=== PATIENT | male | born 1980 | race Caucasian/White ===

== ENCOUNTER 2020-03-11 09:01 | Observation (INO) ==
--- NOTE | 2020-03-11 09:43 | Emergency Department Note ---
Abdominal Pain HPI General Chief Complaint: Abdominal Pain Stated Complaint: hernia Time Seen by Provider: 03/11/20 12:03 Source: patient and RN notes reviewed Mode of arrival: ambulatory Limitations: no limitations History of Present Illness HPI Narrative: Narrative: This patient comes emergency room because of a left inguinal hernia. Location is in the left inguinal region where he does have a bulge. Duration has been 6 months with exacerbation over the last few weeks and much more of an exacerbation over the last couple of days. Timing shows that the pain has been constant for the last week and worsening over the last couple of days. Severity is moderate. Quality the pain is sharp. Associated signs and symptoms appear to be negative. He has had no associated nausea vomiting fever chills or signs of toxicity. Context does not show anything specific. He does workout a lot but does not recall a specific injury as to when this occurred. Modifying factors include worsening pain with palpation improvement in the pain if lying flat. Is also made worse by sitting and walking. Related Data Allergies Allergy/AdvReac Type Severity Reaction Status Date / Time Sulfa (Sulfonamide Allergy Intermediate Vomiting Verified 01/21/15 17:51 Antibiotics) Review of Systems ROS ROS Narrative: Narrative: All systems ED: reviewed and negative except as stated. Constitutional: Denies fever, chills and sweats Cardiovascular: Denies chest pain Respiratory: Denies shortness of breath Gastrointestinal: Reports abdominal pain; Denies nausea and vomiting Genitourinary: Reports testicular pain (On the left side) Musculoskeletal: Reports myalgia [facility] Narrative Patient History Narrative: Narrative: This patient has no surgical history and no pertinent family history. Medical/Surgical/Family History All Active Problems (Updated 03/11/20 @ 12:08 by Wong Pearson MD) Chicken pox (Acute) Impetigo (Acute) Viral exanthem (Acute) Corneal abrasion (Acute) Oral herpes (Acute) Sinusitis (Acute) Anxiety (Acute) Incarcerated left inguinal hernia (Acute) Medical History (Updated 03/11/20 @ 12:08 by Wong Pearson MD) Chicken pox (Acute) Corneal abrasion (Acute) Impetigo (Acute) Oral herpes (Acute) Viral exanthem (Acute) Social History Smoking Status: Current every day smoker Exam Narrative Narrative: Narrative: Left inguinal region shows about a 3 to 4 cm area of bulging coming down the inguinal canal. It is tender to palpation and I have difficulty reducing this. The testicle on the left side looks normal. The hernia does not extend down to the testicle. General Limitations: no limitations Head Head: atraumatic and normocephalic Eye Eye: Present normal appearance; Absent conjunctival injection ENT ENT: Present normal exam, normal oropharynx and mucous membranes moist Neck Neck: Present normal inspection and full ROM Chest Chest: Present normal inspection and symmetric chest wall rise Respiratory Respiratory: Present normal lung sounds bilaterally; Absent respiratory distress, rales/crackles and wheezes Cardiovascular Cardiovascular: Present regular rate, normal rhythm and normal heart sounds Adbominal Abdominal: Present soft, distention, tenderness, normal bowel sounds and hernia; Absent guarding, rebound and rigidity : Present normal inspection, normal testicular lie and circumcised; Absent testicular tenderness and scrotal swelling Extremities Extremities: Present normal inspection and full ROM Neurological Neurological: Present alert and oriented X3 Psychiatric Psychiatric: Present normal affect Skin Skin: Present warm; Absent diaphoresis Course Vital Signs Vital signs: Vital Signs Temperature 97.7 F 03/11/20 09:02 Pulse Rate 132 H 03/11/20 09:02 Respiratory Rate 16 03/11/20 09:02 Blood Pressure 151/100 03/11/20 09:02 Pulse Oximetry (%) 97 03/11/20 09:02 Temperature 97.7 F 03/11/20 09:02 Pulse Rate 57 L 03/11/20 11:30 Respiratory Rate 16 03/11/20 09:02 Blood Pressure 148/100 03/11/20 11:30 Pulse Oximetry (%) 97 03/11/20 11:30 [facility] MDM Narrative Medical decision making narrative: Narrative: This patient does have an incarcerated left inguinal hernia that is all fat without any bowel component. It is not reducible and is painful and I discussed the case with Dr. Palacios the surgeon and will admit to his service. Differential Diagnosis Differential Diagnosis: Incarcerated or strangulated left inguinal hernia Lab Data Lab results reviewed: Yes I reviewed the patient's lab results. Result diagrams: 03/11/20 09:40 03/11/20 09:40 Labs: Lab Results 03/11/20 03/11/20 Range/Units 09:40 09:40 WBC 7.5 (4.50-11.00) K/mcL RBC 4.94 (4.63-6.08) M/mcL Hgb 16.3 (13.7-17.5) g/dL Hct 46.7 (40.1-51.0) % MCV 94.5 (80.0-100.0) fL MCH 33.0 (26.0-34.0) pg MCHC 34.9 (31.0-36.0) g/dL RDW 12.5 (11.5-14.5) % Plt Count 297 (140-440) K/mcL MPV 10.1 (7.4-10.4) fL Gran % 55.8 (38.0-78.0) % Lymph % (Auto) 33.7 (15.5-49.0) % [place] % (Auto) 8.1 (1.0-12.0) % Eos % (Auto) 1.7 (0.0-7.0) % Baso % (Auto) 0.7 (0.0-2.0) % Gran # 4.19 (1.80-8.00) K/mcL Lymph # (Auto) 2.53 (1.50-4.80) K/mcL [place] # (Auto) 0.61 (0.10-0.90) K/mcL Eos # (Auto) 0.13 (0.00-0.70) K/mcL Baso # (Auto) 0.05 (0.00-0.30) K/mcL Sodium 141 (133-145) mmol/L Potassium 3.6 (3.3-5.1) mmol/L Chloride 107 (96-108) mmol/L Carbon Dioxide 21 L (22-30) mmol/L Anion Gap 13.0 (8-16) BUN 17 (6-20) mg/dl Creatinine 0.8 (0.7-1.2) mg/dl GFR Calculation 110 Glucose 99 (70-105) mg/dL Calcium 8.5 L (8.6-10.4) mg/dl Total Bilirubin 0.3 (0.0-1.0) mg/dL AST 17 (0-37) U/l ALT 19 (0-40) U/l Alkaline Phosphatase 62 (39-117) U/L Total Protein 6.0 (5.9-8.4) gm/dL Albumin 3.8 (3.2-5.2) gm/dL Globulin 2.2 (2.2-3.7) gm/dL Albumin/Globulin Ratio 1.7 (1.0-2.3) Radiology Data Radiology results reviewed: Yes I reviewed the patient's radiology results. Radiology results narrative: Ultrasound confirms an incarcerated left inguinal hernia that is all fat without any bowel component. Also commented that it was nonreducible. There is a 6 cm hernia coming through a 2 cm opening. Discharge Plan Patient/Caregiver Discharge Instructions Pt seen by PERFORMANCE ANALYST/PA only: No Clinical Impression: Incarcerated left inguinal hernia Patient Disposition: Xfer As Outpt/Obs ([facility]) Follow up with: No,PCP [Primary Care Provider] -
[2020-03-11] MEDS: HYDROmorphone 0.5 MG/0.5 ML SYRINGE IV PRN ×7 (10:05→22:55)
--- NOTE | 2020-03-11 10:36 | XRay Report ---
CLINICAL INFORMATION: Preop - hernia COMPARISON: None. TECHNIQUE: PA and Lateral views FINDINGS: The heart size, mediastinum and pulmonary vessels are unremarkable. The lungs are clear. There are no effusions. The bones and soft tissues are within normal limits. IMPRESSION: Normal chest. Interpreted and Authenticated by: Brandin Mukherjee 03/11/20
[2020-03-11 10:53] LABS: Basophils # (Auto) 0.05 K/mcL (0.00-0.30); Basophils % (Auto) 0.7 % (0.0-2.0); Eosinophils # (Auto) 0.13 K/mcL (0.00-0.70); Eosinophils % (Auto) 1.7 % (0.0-7.0); Granulocytes % (Auto) 55.8 % (38.0-78.0); Hematocrit 46.7 % (40.1-51.0); Hemoglobin 16.3 g/dL (13.7-17.5); Lymphocytes # (Auto) 2.53 K/mcL (1.50-4.80); Lymphocytes % (Auto) 33.7 % (15.5-49.0); Mean Cell Volume 94.5 fL (80.0-100.0); Mean Corpuscular HGB Conc 34.9 g/dL (31.0-36.0); Mean Platelet Volume 10.1 fL (7.4-10.4); Monocytes # (Auto) 0.61 K/mcL (0.10-0.90); Monocytes % (Auto) 8.1 % (1.0-12.0); Platelet Count 297 K/mcL (140-440); RBC 4.94 M/mcL (4.63-6.08); Red Cell Distribution Width 12.5 % (11.5-14.5); WBC 7.5 K/mcL (4.50-11.00)
[2020-03-11 11:15] LABS: ALT/SGPT 19 U/l (0-40); AST/SGOT 17 U/l (0-37); Albumin 3.8 gm/dL (3.2-5.2); Albumin/Globulin Ratio 1.7 (1.0-2.3); Alkaline Phosphatase 62 U/L (39-117); Bilirubin,Total 0.3 mg/dL (0.0-1.0); Blood Urea Nitrogen 17 mg/dl (6-20); Calcium 8.5 mg/dl (8.6-10.4); Carbon Dioxide 21 mmol/L (22-30); Chloride 107 mmol/L (96-108); Globulin 2.2 gm/dL (2.2-3.7); Glomerular Filtration Rate 110; Glucose 99 mg/dL (70-105)
--- NOTE | 2020-03-11 11:55 | Ultrasound Report ---
CLINICAL INFORMATION: Left groin bulge. Evaluate for inguinal hernia COMPARISON: None. FINDINGS: 6 x 5 cm left inguinal hernia containing only mesenteric fat. Could not be reduced. IMPRESSION: 6 cm left inguinal hernia projecting through 2 cm defect in the lower pelvic wall. It appears to be entirely fat and cannot be reduced. Interpreted and Authenticated by: Brandin Mukherjee 03/11/20
[2020-03-11] MEDS ORDERED: ONDANSETRON 4 MG/2 ML VIAL IV PRN (12:03)
[2020-03-11] MEDS: LACTATED RINGERS 1,000 ML IV SCH (15:10)
--- NOTE | 2020-03-11 15:44 | General Surg History&Physical ---
HPI History of Present Illness Patient information: Note initiated : 03/11/20 at 3:36 pm Service Date, if different from initiated Date: [] Patient: Wong Sylevster 40 y/o M admitted on 03/11/20 for hernia. Chief Complaint: [] Chief complaint: left inguinal mass History of present illness: Mr. Sylvester is a 40 year old M who presents with a two-week history of increasing pain in his left groin. He has had a known her yudy for at least 6 months. The pain increased in intensity as the hernia sized increase. Previously it was reducible but it became nonreducible last evening. He now has a tightly incarcerated left inguinal hernia confirmed by ultrasound. He denies nausea vomiting. Patient is counseled for left inguinal hernia repair. Review of Systems All systems: reviewed and no additional remarkable complaints except as stated (numbness of hands and arm with elevation above head; symptoms resolved with lowering of arms) PFSH PFSH All Active Problems (Updated 03/11/20 @ 12:08 by Wong Pearson MD) Chicken pox (Acute) Impetigo (Acute) Viral exanthem (Acute) Corneal abrasion (Acute) Oral herpes (Acute) Sinusitis (Acute) Anxiety (Acute) Incarcerated left inguinal hernia (Acute) Medical History (Updated 03/11/20 @ 12:08 by Wong Pearson MD) Chicken pox (Acute) Corneal abrasion (Acute) Impetigo (Acute) Oral herpes (Acute) Viral exanthem (Acute) Family History (Updated 03/11/20 @ 15:39 by Angel Palacios MD) Father Hypertension Mother No problems noted. Social History (Updated 03/11/20 @ 15:40 by Angel Palacios MD) occupational status: employed smoking status: Current some day smoker alcohol intake frequency: a few times a week substance use type: marijuana MEDS/ALLERGIES Home Medications and Allergies Home Medications Medication Instructions Recorded Confirmed Type No Known Home Meds 03/11/20 03/11/20 History Allergies Allergy/AdvReac Type Severity Reaction Status Date / Time Sulfa (Sulfonamide Allergy Intermediate Vomiting Verified 01/21/15 17:51 Antibiotics) Physical Examination Vital Signs Vital signs: Temp Pulse Resp BP Pulse Ox 97.7 F 61 16 121/80 96 03/11/20 13:15 03/11/20 13:15 03/11/20 13:15 03/11/20 13:15 03/11/20 13:15 General physical appearance General physical exam: well developed, well nourished and moderate distress Eyes Eye exam: PERRL and normal ocular movement ENT ENT exam: normal mucosa and no hearing loss Head Head exam IM: Present atraumatic, normal inspection and normocephalic Neck Neck exam: no masses, no bruits, trachea midline, no lymphadenopathy and no venous distension Cardiovascular Cardiovascular exam IM: Present normal rate and rhythm, RRR, +S1 and +S2; Absent gallop and JVD Respiratory Respiratory exam: normal expansion, normal respiratory effort, clear to percussion and clear to auscultation Abdomen Abdomen: Present soft, non tender, tender and bowel sounds Hernia: Present inguinal (tender enlarged mass left groin which is tightly incarcerated; no erythema noted) Integumentary Integumentary: Present no rash, no growths and no abnormal pigmentation Neurologic Neurologic: Present normal coordination and normal sensation Musculoskeletal Musculoskeletal: Present normal gait and normal posture Psychiatric Psychiatric: Present oriented to time, oriented to person, oriented to place, speech is normal and memory intact Results Labs Result diagrams: 03/11/20 09:40 03/11/20 09:40 Labs: Abnormal lab results 03/11/20 Range/Units 09:40 Carbon Dioxide 21 L (22-30) mmol/L Calcium 8.5 L (8.6-10.4) mg/dl Diabetes panel 03/11/20 Range/Units 09:40 Sodium 141 (133-145) mmol/L Potassium 3.6 (3.3-5.1) mmol/L Chloride 107 (96-108) mmol/L Carbon Dioxide 21 L (22-30) mmol/L BUN 17 (6-20) mg/dl Creatinine 0.8 (0.7-1.2) mg/dl Glucose 99 (70-105) mg/dL Calcium 8.5 L (8.6-10.4) mg/dl AST 17 (0-37) U/l ALT 19 (0-40) U/l Alkaline Phosphatase 62 (39-117) U/L Total Protein 6.0 (5.9-8.4) gm/dL Albumin 3.8 (3.2-5.2) gm/dL Calcium panel 03/11/20 Range/Units 09:40 Calcium 8.5 L (8.6-10.4) mg/dl Albumin 3.8 (3.2-5.2) gm/dL Pituitary panel 03/11/20 Range/Units 09:40 Sodium 141 (133-145) mmol/L Potassium 3.6 (3.3-5.1) mmol/L Chloride 107 (96-108) mmol/L Carbon Dioxide 21 L (22-30) mmol/L BUN 17 (6-20) mg/dl Creatinine 0.8 (0.7-1.2) mg/dl Glucose 99 (70-105) mg/dL Calcium 8.5 L (8.6-10.4) mg/dl Adrenal panel 03/11/20 Range/Units 09:40 Sodium 141 (133-145) mmol/L Potassium 3.6 (3.3-5.1) mmol/L Chloride 107 (96-108) mmol/L Carbon Dioxide 21 L (22-30) mmol/L BUN 17 (6-20) mg/dl Creatinine 0.8 (0.7-1.2) mg/dl Glucose 99 (70-105) mg/dL Calcium 8.5 L (8.6-10.4) mg/dl Total Bilirubin 0.3 (0.0-1.0) mg/dL AST 17 (0-37) U/l ALT 19 (0-40) U/l Alkaline Phosphatase 62 (39-117) U/L Total Protein 6.0 (5.9-8.4) gm/dL Albumin 3.8 (3.2-5.2) gm/dL All other labs normal. A/P Assessment and plan (1) Incarcerated left inguinal hernia: Status: Acute Narrative A/P Narrative: admit to observation sCHEDULE for left inguinal hernia repair in the AM nothing by mouth after midnight Time Spent With Patient Time: Total time spent is greater than 50% in coordination of care (as documented) at patient's floor/unit and/or counseling patient:
[2020-03-11 20:10] LABS: Appearance,Urine CLEAR; Bacteria,Urine 0 /hpf (0); Bilirubin,Urine NEG (NEG); Color,Urine YELLOW; Culture Indicated,Urine NO; Glucose,Urine (UA) NEGATIVE (NEG); Ketones,Urine NEG (NEG); Leukocyte Esterase,Urine NEG /uL (NEG); Mucus,Urine FEW /hpf (0); Nitrate,Urine NEG (NEG); Protein,Urine NEG (NEG); Specific Gravity,Urine 1.021 (1.000-1.035); Urine Blood NEG mg/dL (<0.03); Urine Hyaline Cast 1 /lpf (0-2); Urine RBC 0 /hpf (0-1); Urine Squamous Epithelial Cell < 1 /hpf (0-4); Urine WBC < 1 /hpf (0-4); Urobilinogen,Urine NEG (NEG)
[2020-03-11 20:39] LABS: Amphetamine Screen,Urine SUSPECT POSITIVE (NONDETECTED); Barbiturate Screen,Urine NONE DETECTED (NONDETECTED); Benzodiazepines Screen,Urine NONE DETECTED (NONDETECTED); Cannabinoid Screen,Urine SUSPECT POSITIVE (NONDETECTED); Cocaine Screen,Urine NONE DETECTED (NONDETECTED); Opiate Screen,Urine NONE DETECTED (NONDETECTED); Oxycodone, Urine Screen NONE DETECTED (NONDETECTED); Phencyclidine Screen,Urine NONE DETECTED (NONDETECTED)
[2020-03-12] MEDS: HYDROmorphone 0.5 MG/0.5 ML SYRINGE IV PRN ×3 (01:29→08:27)
[2020-03-12] MEDS ORDERED: SCOPOLAMINE 1 PATCH PATCH TOPICAL PRN (02:17)
[2020-03-12] MEDS ORDERED: IPRATROPIUM/ALBUTEROL 3 ML AMPUL.NEB NEB PRN (02:17)
[2020-03-12] MEDS ORDERED: LEVOFLOXACIN 750 MG/150 ML BAG IV SCH (06:00)
[2020-03-12] MEDS ORDERED: LEVAQUIN 750 MG IV ONE (08:00)
--- NOTE | 2020-03-12 10:57 | Discharge Summary ---
Discharge Provider Provider Patient information: Note initiated : 03/12/20 at 10:46 am Service Date, if different from initiated Date: [] Patient: Wong Sylvester 40 y/o M admitted on 03/11/20 for hernia. Chief Complaint: [] Date of admission: 03/11/20 13:13 Discharge date: 03/12/20 Primary care physician: PCP No Admitting clinician: Angel Palacios Attending physician on admission: Angel Palacios Consults: 03/11/20 Consult to Physician [CONS] Stat Comment: Consulting Provider: Angel Palacios Reason For Exam: Physician to Consult Attending physician on discharge: Angel Palacios Discharging clinician: Angel Palacios COURSE Hospital Course Hospital course: 40-year-old male admitted on yesterday with an incarcerated left inguinal hernia with severe pain. He was admitted in preparation for operative treatment. The patient had a prior history of methamphetamine use. A urine drug screen was done in the emergency room which came back positive for methamphetamine and THC. After discussion with anesthesia it was their impression that we should wait at least 72 hours more before subjecting him to anesthesia. Fortunately his hernia has reduced overnight and though he has some tenderness there is no risk for intestinal obstruction. Patient is discharged with the understanding that he is not to use any methamphetamine until he returns. He will return to outpatient on Sunday morning prior to 9 AM and a repeat drug screen will be done. If negative, we will then proceed with hernia repair. Discharge diagnosis: incarcerated left inguinal hernia Secondary discharge diagnosis: methamphetamine positive status Reason for admission: incarcerated left inguinal hernia with severe pain Procedures: none Pertinent studies/significant findings: ultrasound of pelvis Complications: none; Time Spent with Patient Time attestation: Total time spent providing and/or coordinating discharge services: Physical Examination Vital Signs Vital signs: Temp Pulse Resp BP Pulse Ox 98.1 F 54 L 16 133/86 96 03/12/20 07:45 03/12/20 07:45 03/12/20 07:45 03/12/20 07:45 03/12/20 07:45 General physical appearance General physical exam: well developed, well nourished and no distress Eyes Eye exam: PERRL and normal ocular movement ENT ENT exam: normal nares and normal mucosa Head Head exam IM: Present atraumatic, normal inspection and normocephalic Neck Neck exam: no masses, no bruits, trachea midline and no lymphadenopathy Cardiovascular Cardiovascular exam IM: Present normal rate and rhythm, RRR, +S1 and +S2; Absent JVD Respiratory Respiratory exam: normal expansion, normal respiratory effort, clear to percussion and clear to auscultation Abdomen Abdomen: Present soft and tender (left inguinal area) Hernia: Present inguinal (left inguinal hernia) Integumentary Integumentary: Present no rash, no growths and no abnormal pigmentation Neurologic Neurologic: Present normal coordination and normal sensation Musculoskeletal Musculoskeletal: Present normal gait, normal posture and other Psychiatric Psychiatric: Present oriented to time, oriented to person, oriented to place, speech is normal and memory intact Discharge Plan Patient/Caregiver Discharge Instructions Activity: increase activity as tolerated Diet: Regular Diet Activity Restrictions/Additional Instructions: patient is to refrain from the use of methamphetamine He is to return to day surgery on Sunday morning prior to 9 AM. Drug screening will be done at that time and if it is negative we will proceed with hernia repair. Prescriptions: No Action No Known Home Meds RF: 0 Follow Up Plan Follow up with: Madeline,PCP [Primary Care Provider] - Patient Disposition: Home, Self-Care Assessment: patient has positive methamphetamine screen and his surgery will be canceled because his hernia has reduced it is no longer incarcerated. We will make an attempt to do his surgery on Sunday of next week. Prognosis: Good Rehab Potential: Good I certify that the patient requires SNF services: No Overall status at discharge: patient is back to baseline Discharge Orders: Discharge Order (Routine); Ordered 03/12/20 Ordered By: Angel Palacios Pending Pending Pending: Resuscitation Status Full Code Diet Regular Diet Start SunMar 12 0945 Hydromorphone HCl (Dilaudid) 0.5 mg IV Q2HP PRN; Protocol PRN Reason: Per Pain Protocol Last Admin: 03/12/20 08:27 Dose: 0.5 mg Documented by: Admin: 03/12/20 04:56 Dose: 0.5 mg Documented by: Admin: 03/12/20 01:29 Dose: 0.5 mg Documented by: Admin: 03/11/20 22:55 Dose: 0.5 mg Documented by: Admin: 03/11/20 20:37 Dose: 0.5 mg Documented by: Admin: 03/11/20 18:06 Dose: 0.5 mg Documented by: Admin: 03/11/20 15:45 Dose: 0.5 mg Documented by: MARITZA Lactated Ringer's (Lactated Ringers) 1,000 mls @ 50 mls/hr IV .Q20H SIOMARA Last Admin: 03/11/20 15:10 Dose: 50 mls/hr Documented by: MARITZA Levofloxacin (Levaquin) 750 mg in 150 mls @ 100 mls/hr IV PREOP SIOMARA Stop: 03/12/20 13:00 Last Infusion: 03/12/20 08:35 Dose: 0 mls/hr Documented by: Admin: 03/12/20 07:01 Dose: 100 mls/hr Documented by: KARYN Shift Summary 03/12/20 04:30 Shift Summary by Saritha Gerardo The patient is alert and oriented times four and is able to make his needs known, he is up ad ann with 1 SBA for IV pole assistance and voids via urinal in the restroom. He presented to the ER with a two-week history of increasing pain in his left groin for his hernia that he reports has been there for the last 6 months. He self-reports the pain has increased in intensity as the hernia sized increased the last two weeks and was previously it was reducible but it became non-reducible 24 hours ago. Ultrasound showed a tightly incarcerated left inguinal hernia that is all fat without any bowel component and is 6 cm coming through a 2 cm opening. Skin intact, pulses 2+, IV infusing LR at 50 ml/hr into his right hand, Diluadid 0.5 mg PRN every 2 hours palliating his pain, denies nausea, NPO since 0000. Will have surgical intervention with Dr. Palacios today, co nsent signed in chart and pre-op orders in place. Will update shift summary report at bedside. Initialized on 03/12/20 04:30 - END OF NOTE
[2020-03-12] MEDS: LACTATED RINGERS 1,000 ML IV SCH (12:12)
[2020-03-23 10:57] LABS: Cannabinoid Confirmation POSITIVE (N)
== END 2020-03-12 12:19 | disposition home or self-care (01) ==
LOC: MEDSUR 09:01 → ED 09:01 → MEDSUR 13:12
PROVIDERS: ADMIT Family Medicine Adult Medicine; ATTEND Family Medicine Adult Medicine

== ENCOUNTER 2020-07-29 10:21 | Observation (INO) ==
[~2020-07-29 10:21] MED LIST: DEXAMETHASONE 10 MG/ML VIAL ONE; LIDOCAINE HCL/PF 100 MG/5 ML SYRINGE IV ONE; MIDAZOLAM 5 MG/5 ML VIAL ONE; ONDANSETRON 4 MG/2 ML VIAL ONE; PROPOFOL 200 MG/20 ML VIAL IV ONE; ROPIVACAINE HCL/PF 20 ML VIAL IJ ONE; fentaNYL 100 MCG/2 ML VIAL IV ONE
[2020-07-29] MEDS ORDERED: ACETAMINOPHEN 325 MG TABLET PO ONE (10:43)
--- NOTE | 2020-07-29 10:51 | Emergency Department Note ---
Abdominal Pain HPI General Chief Complaint: Abdominal Pain Stated Complaint: Hernia, Testicle Pain Time Seen by Provider: 07/29/20 10:24 Source: patient Mode of arrival: ambulatory Limitations: no limitations History of Present Illness HPI Narrative: Narrative: 40-year-old male patient presents emergency department chief complaint of recurrent and worsening left lower quadrant abdominal pain and fullness. Patient has known history of left inguinal hernia that became incarcerated back March. He was evaluated by general surgeon during that time and slated for surgical repair. Unfortunately, patient has a history of methamphetamine abuse and the anesthesia department wanted the patient to be off methamphetamines for at least 3 days prior to surgery. Tragically, patient was not able to get clean until recently. He has been off methamphetamines for approximately 2 months. He mentions there may be some residual THC in his system. However he has had no illicit drugs for several days. He mentions that the fullness and pain recurred approximately 2 weeks ago after suffering a bout of "food poisoning". Since that time the hernia has progressively worsened. He is no longer able to push the hernia back in place. The pain is extending into his left testicle as previous. ROS: Denies systemic illness, fever, sweats, chills. Denies headaches, tinnitus, or vision changes. Denies runny nose, sinus congestion, or cough. Denies shortness of breath. Denies retrosternal chest pain or palpitations. Denies nausea, vomiting, or diarrhea. Denies dysuria, hematuria, urinary frequency, or urinary urgency. Denies generalized or focal weakness. Related Data Home Medications Medication Instructions Recorded Confirmed No Known Home Meds 03/11/20 07/29/20 Allergies Allergy/AdvReac Type Severity Reaction Status Date / Time Sulfa (Sulfonamide Allergy Intermediate Vomiting Verified 01/21/15 17:51 Antibiotics) Review of Systems ROS ROS Narrative: Narrative: All systems ED: reviewed and negative except as stated. [facility] Narrative Patient History Narrative: Narrative: Medical/Surgical/Family History All Active Problems Recurrent left inguinal hernia (Acute) Oral herpes (Acute) Incarcerated left inguinal hernia (Acute) Medical History Anxiety (Inactive) Chicken pox (Resolved) Corneal abrasion (Resolved) Impetigo (Resolved) Oral herpes (Acute) Sinusitis (Inactive) Viral exanthem (Resolved) Family History Father Hypertension Mother No problems noted. Social History Smoking Status: Current some day smoker Alcohol Intake Frequency: a few times a week Substance Use: marijuana Exam Narrative Narrative: Narrative: General Limitations: no limitations General appearance: Present other (Well-developed, well-nourished, 40-year-old male patient laying semirecumbent on the emergency room gurney no acute distress. He is afebrile with normal vital signs.) Head Head: Present normocephalic Eye Eye: Present normal appearance, PERRL and EOMI; Absent scleral icterus and conjunctival injection ENT ENT: Present normal oropharynx and mucous membranes moist Neck Neck: Present trachea midline; Absent lymphadenopathy and thyromegaly Chest Chest: Present symmetric chest wall rise Respiratory Respiratory: Present normal lung sounds bilaterally; Absent respiratory distress, wheezes, stridor, accessory muscle use and prolonged expiratory phase Cardiovascular Cardiovascular: Present regular rate and normal rhythm; Absent systolic murmur and diastolic murmur Adbominal Abdominal: Present soft, tenderness, normal bowel sounds and hernia (Left inguinal hernia appreciated that is nonreducible on exam.); Absent distention, guarding, rebound, rigidity, organomegaly and mass : Present normal inspection and normal testicular lie; Absent testicular tenderness, urethral discharge, scrotal swelling, testicular nodules and epididymal tenderness Extremities Extremities: Present normal inspection, full ROM and normal capillary refill Back Back: Present normal inspection and full ROM Neurological Neurological: Present alert and oriented X3 Psychiatric Psychiatric: Present normal affect and anxious Skin Skin: Present warm (WNL), dry and normal color Course Course Course Narrative: The differential diagnosis of lower abdominal pain in the adult patient includes the following: Appendicitis, diverticulitis, nephrolithiasis, pyelonephritis, acute urinary retention, cystitis, infectious colitis. Patient has known history of left-sided inguinal hernia that has become incarcerated in the past. This appears to have recurred over the last 3 days. It is no longer reducible once again. Patient has been clean off of methamphetamines for several months. He is hopeful to be reevaluated and likely have his hernia repaired. I am going to order screening laboratory studies and a UDS. We will repeat the ultrasound of his left lower abdomen to confirm the diagnosis and look for reducibility. Reevaluation(s) Reevaluation #1: A review the patient's diagnostics show the following: CBC hemoglobin 17.6, all others normal limits. Chemistry panel glucose 106, ionized calcium 110, all others normal limits. Urinalysis showing disha-colored urine specific gravity 1.020, positive proteinuria, no bacteria, no evidence of infection. UDS showing positive THC but negative for amphetamines. Repeat abdominal ultrasound showing a stable fat-containing left inguinal hernia that was reducible on exam. Upon reevaluation patient complains of a bit more pain that he rates at 7/10. Patient was given hydrocodone/APAP 7.5-325 mg tablet p.o. x1. After reviewing all the data I discussed these findings with the patient. He has a recurrent left inguinal hernia that would likely be amicable to repair. Knowing this I reached out to our general surgeon (Dr. Palacios) I discussed the case with him. Time: 12:45 Reevaluation #2: At this time the general surgeon mention that the patient should be admitted to the hospital in anticipation of having inguinal hernia repair performed tomorrow. He requested that I place some holding orders for the patient and then he would evaluate him later on this evening. With this in mind, I discussed the admission with the patient who verbalized understanding. At this time patient is going to be admitted to the hospital under observation in anticipation of surgery tomorrow. After placing holding orders, all further treatment decisions, modalities, and ultimate patient disposition be carried out by the general surgeon. Time: 12:55 Vital Signs Vital signs: Vital Signs Temperature 97.7 F 07/29/20 10:21 Pulse Rate 90 07/29/20 10:21 Respiratory Rate 20 07/29/20 10:21 Blood Pressure 142/97 07/29/20 10:21 Pulse Oximetry (%) 96 07/29/20 10:21 Temperature 97.2 F 07/29/20 14:34 Pulse Rate 69 07/29/20 14:34 Respiratory Rate 16 07/29/20 14:34 Blood Pressure 145/100 07/29/20 14:34 Pulse Oximetry (%) 95 07/29/20 14:34 [facility] MDM Narrative Medical decision making narrative: Narrative: Lab Data Lab results reviewed: Yes I reviewed the patient's lab results. Result diagrams: 07/29/20 10:52 Labs: Lab Results 07/29/20 07/29/20 07/29/20 Range/Units 10:52 10:52 11:27 WBC 9.1 (4.5-11.0) K/mcL RBC 5.32 (4.50-5.90) M/mcL Hgb 17.6 H (13.5-16.5) g/dL Hct 50.7 (41.0-55.0) % POC Hct 53 (41-55) % MCV 95.3 (80.0-100.0) fL MCH 33.1 (26.0-34.0) pg MCHC 34.7 (31.0-36.0) g/dL RDW 12.6 (11.5-14.5) % Plt Count 361 (140-440) K/mcL MPV 9.6 (7.4-10.4) fL Neut % (Auto) 60.7 (38.0-78.0) % Lymph % (Auto) 28.6 (15.0-49.0) % [facility] % (Auto) 8.9 (1.0-12.0) % Eos % (Auto) 0.9 (0.0-7.0) % Baso % (Auto) 0.9 (0.0-2.0) % Lymph # (Auto) 2.59 (1.50-4.80) K/mcL [facility] # (Auto) 0.81 (0.10-0.90) K/mcL Eos # (Auto) 0.08 (0.00-0.70) K/mcL Baso # (Auto) 0.08 (0.00-0.20) K/mcL Absolute Neutrophils 5.51 (1.80-8.00) K/mcL POC Sodium 138 (133-145) mEq/L POC Potassium 4.1 (3.3-5.1) mEql/L POC Chloride 104 (96-108) mEq/L POC Total CO2 24 (22-30) mmol/L POC BUN 16 (6-20) mg/dL POC Creatinine 1.0 (0.6-1.2) mg/dL POC Glucose 106 H (70-105) mg/dL POC WB Ioniz Calcium 1.10 L (1.16-1.32) mmEq/L Urine Color Urine Appearance (Clear) Urine pH (5.0-9.0) Ur Specific [place] (1.000-1.035) Urine Protein (Negative) mg/dL Urine Glucose (UA) (Negative) mg/dL Urine Ketones (Negative) mg/dL Urine Occult Blood (Negative) mg/dL Urine Nitrate (Negative) Urine Bilirubin (Negative) mg/dL Urine Urobilinogen mg/dL Ur Leukocyte Esterase (Negative) /ug Urine RBC (0-3) /hpf Urine WBC (0-4) /hpf Ur Squamous Epith Cells (0-4) /hpf Urine Bacteria (0) /hpf Urine Mucus (None) /hpf Ur Culture Indicated? Urine Opiates Screen None detected Ur Opiates Confirm Not Reportable Ur Oxycodone Screen None detected Urine Methadone Screen None detected Ur Methadone Confirm Not Reportable Ur Barbiturates Screen None detected Ur Barbiturate Confirm Not Reportable Ur Phencyclidine Scrn None detected Urine PCP Confirm Not Reportable Ur Amphetamines Screen None detected U Amphetamines Confirm Not Reportable U Benzodiazepines Scrn None detected U Benzodiazepine Confm Not Reportable Urine Cocaine Screen None detected Urine Cocaine Confirm Not Reportable U Cannabinoids Confirm Not Reportable U Marijuana (THC) Screen Suspect positive A 07/29/20 Range/Units 11:27 WBC (4.5-11.0) K/mcL RBC (4.50-5.90) M/mcL Hgb (13.5-16.5) g/dL Hct (41.0-55.0) % POC Hct (41-55) % MCV (80.0-100.0) fL MCH (26.0-34.0) pg MCHC (31.0-36.0) g/dL RDW (11.5-14.5) % Plt Count (140-440) K/mcL MPV (7.4-10.4) fL Neut % (Auto) (38.0-78.0) % Lymph % (Auto) (15.0-49.0) % [facility] % (Auto) (1.0-12.0) % Eos % (Auto) (0.0-7.0) % Baso % (Auto) (0.0-2.0) % Lymph # (Auto) (1.50-4.80) K/mcL [facility] # (Auto) (0.10-0.90) K/mcL Eos # (Auto) (0.00-0.70) K/mcL Baso # (Auto) (0.00-0.20) K/mcL Absolute Neutrophils (1.80-8.00) K/mcL POC Sodium (133-145) mEq/L POC Potassium (3.3-5.1) mEql/L POC Chloride (96-108) mEq/L POC Total CO2 (22-30) mmol/L POC BUN (6-20) mg/dL POC Creatinine (0.6-1.2) mg/dL POC Glucose (70-105) mg/dL POC WB Ioniz Calcium (1.16-1.32) mmEq/L Urine Color Disha Urine Appearance Clear (Clear) Urine pH 8.0 (5.0-9.0) Ur Specific [place] 1.020 (1.000-1.035) Urine Protein 30 A (Negative) mg/dL Urine Glucose (UA) Negative (Negative) mg/dL Urine Ketones Negative (Negative) mg/dL Urine Occult Blood Negative (Negative) mg/dL Urine Nitrate Negative (Negative) Urine Bilirubin Negative (Negative) mg/dL Urine Urobilinogen 4.0 A mg/dL Ur Leukocyte Esterase Negative (Negative) /ug Urine RBC < 1 (0-3) /hpf Urine WBC 1 (0-4) /hpf Ur Squamous Epith Cells 1 (0-4) /hpf Urine Bacteria None (0) /hpf Urine Mucus Many A (None) /hpf Ur Culture Indicated? No Urine Opiates Screen Ur Opiates Confirm Ur Oxycodone Screen Urine Methadone Screen Ur Methadone Confirm Ur Barbiturates Screen Ur Barbiturate Confirm Ur Phencyclidine Scrn Urine PCP Confirm Ur Amphetamines Screen U Amphetamines Confirm U Benzodiazepines Scrn U Benzodiazepine Confm Urine Cocaine Screen Urine Cocaine Confirm U Cannabinoids Confirm U Marijuana (THC) Screen Radiology Data Radiology results reviewed: Yes I reviewed the patient's radiology results. Radiology results narrative: Ordering Physician: Nilson Villeda PA-C Date of Service: 07/29/20 Procedure(s): US abdomen limited Accession Number(s): [id number] History: Left inguinal pain field findings in the left groin there is a fat-containing hernia which enlarges with Valsalva and is nearly completely reducible. The neck of the hernia measures 2.7 cm in diameter. There is no apparent entrapment of bowel. This was seen on the prior ultrasound done on 03/11/20. There is no evidence for mass or abnormal fluid collection in this region. Size of the hernia has not changed significantly. IMPRESSION: Stable fat-containing left inguinal hernia Nilson Villeda was called with the results Interpreted and Authenticated by: Candido Lord 07/29/20 Discharge Plan Patient/Caregiver Discharge Instructions Pt seen by RECRUITMENT COORDINATOR/PA only: Yes Clinical Impression: Recurrent left inguinal hernia Patient Disposition: Xfer As Outpt/Obs ([facility]) Condition: Good Discharge Date/Time: 07/29/20 14:10
[2020-07-29 11:06] LABS: POC Blood Urea Nitrogen 16 mg/dL (6-20); POC CO2 24 mmol/L (22-30); POC Chloride 104 mEq/L (96-108); POC Glucose, Random 106 mg/dL (70-105); POC Hematocrit 53 % (41-55); POC Potassium 4.1 mEql/L (3.3-5.1); POC Sodium 138 mEq/L (133-145)
--- NOTE | 2020-07-29 11:27 | Ultrasound Report ---
History: Left inguinal pain field findings in the left groin there is a fat-containing hernia which enlarges with Valsalva and is nearly completely reducible. The neck of the hernia measures 2.7 cm in diameter. There is no apparent entrapment of bowel. This was seen on the prior ultrasound done on 03/11/20. There is no evidence for mass or abnormal fluid collection in this region. Size of the hernia has not changed significantly. IMPRESSION: Stable fat-containing left inguinal hernia Nilson Villeda was called with the results Interpreted and Authenticated by: Candido Lord 07/29/20
[2020-07-29 11:35] LABS: Basophils # (Auto) 0.08 K/mcL (0.00-0.20); Basophils % (Auto) 0.9 % (0.0-2.0); Eosinophils # (Auto) 0.08 K/mcL (0.00-0.70); Eosinophils % (Auto) 0.9 % (0.0-7.0); Hematocrit 50.7 % (41.0-55.0); Hemoglobin 17.6 g/dL (13.5-16.5); Lymphocytes # (Auto) 2.59 K/mcL (1.50-4.80); Lymphocytes % (Auto) 28.6 % (15.0-49.0); Mean Cell Volume 95.3 fL (80.0-100.0); Mean Corpuscular HGB Conc 34.7 g/dL (31.0-36.0); Mean Platelet Volume 9.6 fL (7.4-10.4); Monocytes # (Auto) 0.81 K/mcL (0.10-0.90); Monocytes % (Auto) 8.9 % (1.0-12.0); Neutrophils % (Auto) 60.7 % (38.0-78.0); Platelet Count 361 K/mcL (140-440); RBC 5.32 M/mcL (4.50-5.90); Red Cell Distribution Width 12.6 % (11.5-14.5); WBC 9.1 K/mcL (4.5-11.0)
[2020-07-29 12:10] LABS: Appearance,Urine CLEAR (Clear); Bilirubin,Urine Negative (Negative); Color,Urine AMBER; Culture Indicated,Urine No; Glucose,Urine (UA) Negative (Negative); Ketones,Urine Negative (Negative); Leukocyte Esterase,Urine Negative /ug (Negative); Mucus,Urine MANY /hpf; Nitrate,Urine Negative (Negative); Protein,Urine 30 mg/dL (Negative); Urine Blood Negative (Negative); Urine RBC < 1 /hpf (0-3); Urine Squamous Epithelial Cell 1 /hpf (0-4); Urine WBC 1 /hpf (0-4)
[2020-07-29 12:15] LABS: Amphetamine Screen,Urine None detected; Barbiturate Screen,Urine None detected; Benzodiazepines Screen,Urine None detected; Cannabinoid Screen,Urine Suspect Positive; Cocaine Screen,Urine None detected; Opiate Screen,Urine None detected; Oxycodone, Urine Screen None detected; Phencyclidine Screen,Urine None detected
[2020-07-29] MEDS ORDERED: HYDROCODONE/APAP 7.5/325MG TABLET PO ONE (12:56)
[2020-07-29] MEDS ORDERED: ONDANSETRON 4 MG/2 ML VIAL IV PRN (12:57)
[2020-07-29] MEDS ORDERED: HYDROCODONE/APAP 7.5/325MG TABLET PO PRN (13:02)
--- NOTE | 2020-07-29 16:37 | General Surg History&Physical ---
HPI History of Present Illness Patient information: Note initiated : 07/29/20 at 4:29 pm Service Date, if different from initiated Date: [] Patient: Wong Sylvester a 40 y/o M admitted on 07/29/20 for Hernia, Testicle Pain. Chief Complaint: [] History of present illness: Mr. Sylvester is a 40 year old M admitted with recurrent incarcerated left inguinal hernia. The patient was initially evaluated by me 11 March 2020. He at that time, has a six-month history of painful left groin mass. He was seen in the emergency room with incarcerated hernia was admitted. He however was noted to have positive methamphetamine actually reduced so it was elected not to proceed with urgent surgery. The patient was scheduled to have surgery the following week. However, when he returned for his drug screen again was positive for methamphetamine. He has not been seen since that time. He presents with a four-day history of painful swollen mass in the left groin. Examination is compatible with a left inguinal hernia which is soft but painful. It is partially reducible. Patient has been admitted and will be scheduled for surgery tomorrow. His drug screen is positive for marijuana but no opiates or methamphetamine. Review of Systems All systems: reviewed and no additional remarkable complaints except as stated PFSH PFSH All Active Problems Recurrent left inguinal hernia (Acute) Oral herpes (Acute) Incarcerated left inguinal hernia (Acute) Medical History Anxiety (Inactive) Chicken pox (Resolved) Corneal abrasion (Resolved) Impetigo (Resolved) Oral herpes (Acute) Sinusitis (Inactive) Viral exanthem (Resolved) Family History Father Hypertension Mother No problems noted. Social History occupational status: employed smoking status: Current some day smoker alcohol intake frequency: a few times a week substance use type: marijuana MEDS/ALLERGIES Home Medications and Allergies Home Medications Medication Instructions Recorded Confirmed Type No Known Home Meds 03/11/20 07/29/20 History Allergies Allergy/AdvReac Type Severity Reaction Status Date / Time Sulfa (Sulfonamide Allergy Intermediate Vomiting Verified 01/21/15 17:51 Antibiotics) Physical Examination Vital Signs Vital signs: Temp Pulse Resp BP Pulse Ox 97.2 F 69 16 145/100 95 07/29/20 14:34 07/29/20 14:34 07/29/20 14:34 07/29/20 14:34 07/29/20 14:34 General physical appearance General physical exam: well developed, well nourished, no distress and no pain Eyes Eye exam: PERRL and normal ocular movement ENT ENT exam: normal pinna, normal nares, normal mucosa and no hearing loss Head Head exam IM: Present atraumatic, normal inspection and normocephalic Neck Neck exam: no masses, no bruits, trachea midline, no lymphadenopathy and no venous distension Cardiovascular Cardiovascular exam IM: Present normal rate and rhythm, RRR, +S1 and +S2; Absent irregular rhythm, JVD and systolic murmur Respiratory Respiratory exam: normal expansion, normal respiratory effort and clear to auscultation Abdomen Abdomen: Present soft, non tender and bowel sounds (normal pelvis) Genitourinary Genitourinary (Male): Present other (left inguinal hernia) Integumentary Integumentary: Present no rash, no growths and no abnormal pigmentation Neurologic Neurologic: Present normal coordination and normal sensation Musculoskeletal Musculoskeletal: Present normal gait and normal posture Psychiatric Psychiatric: Present oriented to time, oriented to person, oriented to place, speech is normal and memory intact Results Labs Result diagrams: 07/29/20 10:52 Labs: Abnormal lab results 07/29/20 07/29/20 07/29/20 Range/Units 10:52 10:52 11:27 Hgb 17.6 H (13.5-16.5) g/dL POC Glucose 106 H (70-105) mg/dL POC WB Ioniz Calcium 1.10 L (1.16-1.32) mmEq/L Urine Protein (Negative) mg/dL Urine Urobilinogen mg/dL Urine Mucus (None) /hpf U Marijuana (THC) Screen Suspect positive A 07/29/20 Range/Units 11:27 Hgb (13.5-16.5) g/dL POC Glucose (70-105) mg/dL POC WB Ioniz Calcium (1.16-1.32) mmEq/L Urine Protein 30 A (Negative) mg/dL Urine Urobilinogen 4.0 A mg/dL Urine Mucus Many A (None) /hpf U Marijuana (THC) Screen All other labs normal. A/P Assessment and plan (1) Incarcerated left inguinal hernia: Status: Acute Narrative A/P Narrative: patient is counseled left inguinal hernia.. This will be performed tomorrow. Time Spent With Patient Time: Total time spent is greater than 50% in coordination of care (as documented) at patient's floor/unit and/or counseling patient:
[2020-07-29] MEDS: 0.9 % SODIUM CHLORIDE 10 ML SYRINGE IV SCH ×2 (17:09→20:47)
[2020-07-29] MEDS: HYDROmorphone 1 MG/ML SYRINGE IV PRN (20:47)
[2020-07-29] MEDS ORDERED: HYDROmorphone 1 MG/ML SYRINGE ONE (20:51)
[2020-07-30] MEDS: HYDROmorphone 1 MG/ML SYRINGE IV PRN ×6 (03:44→22:41)
[2020-07-30] MEDS ORDERED: HYDROmorphone 1 MG/ML SYRINGE ONE (03:50)
[2020-07-30] MEDS ORDERED: cefTRIAXone 1 GM VIAL IV SCH ×2 (06:00→09:54)
[2020-07-30] MEDS ORDERED: VANCOMYCIN 1,500 MG in 0.9 % SODIUM CHLORIDE 500 ML IV SCH ×2 (06:00→09:54)
[2020-07-30] MEDS ORDERED: SCOPOLAMINE 1 PATCH PATCH TOPICAL PRN ×2 (07:30→09:54)
[2020-07-30] MEDS ORDERED: IPRATROPIUM/ALBUTEROL 3 ML AMPUL.NEB NEB PRN ×4 (07:30→09:54)
[2020-07-30] MEDS ORDERED: BACITRACIN 50,000 UNIT VIAL IR ONE (08:08)
[2020-07-30] MEDS: 0.9 % SODIUM CHLORIDE 10 ML SYRINGE IV SCH ×3 (08:25→20:11)
[2020-07-30] MEDS ORDERED: FLUMAZENIL 0.1 MG/ML ML IV PRN ×2 (08:59→09:54)
[2020-07-30] MEDS ORDERED: ATROPINE SULFATE 0.4 MG/ML VIAL IV PRN ×2 (08:59→09:54)
[2020-07-30] MEDS ORDERED: PROMETHAZINE 25 MG/ML VIAL IV PRN ×2 (08:59→09:54)
[2020-07-30] MEDS ORDERED: ePHEDrine 50 MG/ML AMPUL IV PRN ×2 (08:59→09:54)
[2020-07-30] MEDS ORDERED: diphenhydrAMINE 50 MG/ML VIAL IV PRN ×2 (08:59→09:54)
[2020-07-30] MEDS ORDERED: MEPERIDINE 25 MG/ML SYRINGE IV PRN ×2 (08:59→09:54)
[2020-07-30] MEDS ORDERED: HYDROmorphone 0.5 MG/0.5 ML SYRINGE IV PRN ×2 (08:59→09:54)
[2020-07-30] MEDS ORDERED: ONDANSETRON 4 MG/2 ML VIAL IV PRN ×3 (08:59→09:54)
[2020-07-30] MEDS ORDERED: METOPROLOL TARTRATE 5 MG/5 ML VIAL IV PRN ×2 (08:59→09:54)
[2020-07-30] MEDS ORDERED: ACETAMINOPHEN 1,000 MG/100 ML BAG IV ONE (08:59)
[2020-07-30] MEDS ORDERED: NALOXONE HCL 0.4 MG/ML VIAL IV PRN ×2 (08:59→09:54)
[2020-07-30] MEDS ORDERED: METHOCARBAMOL 1,000 MG/10 ML VIAL IV PRN ×2 (08:59→09:54)
[2020-07-30] MEDS ORDERED: LACTATED RINGERS 1,000 ML IV SCH ×2 (09:00→09:54)
[2020-07-30] MEDS ORDERED: LORazepam 2 MG/ML VIAL IV ONE ×2 (09:02→09:54)
--- NOTE | 2020-07-30 09:11 | Brief Operative Note ---
Brief Operative Note Date of procedure: 07/30/20 Pre-op diagnosis: LEFT INGUINAL HERNIA Post-op diagnosis: other (LEFT INGUINAL HERNIA ) Procedure: LEFT INGUINAL HERNIA REPAIR Grafts/Implants: Yes (SURGIMESH) Anesthesia: GLMA Findings: LARGE INDIRECT SAC AND LIPOMA OF THE CORD Complications: none Surgeon: Angel Palacios Estimated blood loss (cc): 5 Specimens Removed/Pathology: none sent Condition: stable Disposition: PACU
[2020-07-30] MEDS: fentaNYL 100 MCG/2 ML VIAL IV PRN ×4 (09:15→09:35)
[2020-07-30] MEDS ORDERED: fentaNYL 100 MCG/2 ML VIAL IV ONE (09:21)
[2020-07-30] MEDS ORDERED: fentaNYL 100 MCG/2 ML VIAL IV PRN (09:54)
[2020-07-30] MEDS: HYDROCODONE/APAP 7.5/325MG TABLET PO PRN (18:46)
[2020-07-31] MEDS: HYDROmorphone 1 MG/ML SYRINGE IV PRN ×2 (03:36→09:03)
[2020-07-31] MEDS: 0.9 % SODIUM CHLORIDE 10 ML SYRINGE IV SCH ×2 (03:37→08:07)
[2020-07-31] MEDS: HYDROCODONE/APAP 7.5/325MG TABLET PO PRN ×2 (06:53→12:52)
--- NOTE | 2020-07-31 13:11 | Discharge Summary ---
Discharge Provider Provider Patient information: Note initiated : 07/31/20 at 1:07 pm Service Date, if different from initiated Date: [] Patient: Wong Sylvester 40 y/o M admitted on 07/29/20 for Hernia, Testicle Pain. Chief Complaint: [] Date of admission: 07/29/20 14:13 Discharge date: 07/31/20 Consults: 07/29/20 Consult to Physician [CONS] Stat Comment: Consulting Provider: Angel Palacios Reason For Exam: Physician to Consult COURSE Hospital Course Hospital course: 40-year-old male admitted with incarcerated left inguinal hernia. He's been admitted twice with incarceration, but surgery was postponed because of immediate drug use. He presents with a one-day history of increasing swelling and pain with a nonreducible mass. His drug screen is negative except for marijuana. He was admitted and had open left inguinal hernia repair yester day. He is going well and is stable for discharge home Discharge diagnosis: iincarcerated left inguinal hernia Secondary discharge diagnosis: history of polysubstance abuse Reason for admission: incarcerated left inguinal hernia Procedures: left hernia repair Pertinent studies/significant findings: none Complications: none Time Spent with Patient Time attestation: Total time spent providing and/or coordinating discharge services: Physical Examination Vital Signs Vital signs: Temp Pulse Resp BP Pulse Ox 98.4 F 70 16 135/88 96 07/31/20 11:47 07/31/20 11:47 07/31/20 11:47 07/31/20 11:47 07/31/20 11:47 General physical appearance General physical exam: well developed, well nourished and no distress Eyes Eye exam: PERRL and normal ocular movement ENT ENT exam: normal mucosa and no hearing loss Head Head exam IM: Present atraumatic, normal inspection and normocephalic Neck Neck exam: no masses, trachea midline and no lymphadenopathy Cardiovascular Cardiovascular exam IM: Present normal rate and rhythm, RRR, +S1 and +S2; Absent gallop and JVD Respiratory Respiratory exam: normal expansion, normal respiratory effort, clear to auscultation and other Abdomen Abdomen: Present soft, non tender, bowel sounds (normal bowel sounds) and surgic al scars (surgeon: Incision is unremarkable) Integumentary Integumentary: Present no rash, no growths and no abnormal pigmentation Neurologic Neurologic: Present normal coordination and normal sensation Musculoskeletal Musculoskeletal: Present normal gait and normal posture Psychiatric Psychiatric: Present oriented to time, oriented to person, oriented to place, speech is normal and memory intact Discharge Plan Patient/Caregiver Discharge Instructions Activity: increase activity as tolerated Diet: Regular Diet Prescriptions: New hydrocodone-acetaminophen 7.5-325 mg tablet 1 tab PO Q4H PRN (Reason: pain) Qty: 40 RF: 0 No Action No Known Home Meds RF: 0 Follow Up Plan Follow up with: Angel Palacios MD [Physician] - (contact the office on Sunday and request an appointment for 2 weeks) Patient Disposition: Home, Self-Care Prognosis: Good Rehab Potential: Good I certify that the patient requires SNF services: No Overall status at discharge: patient is progressing back to baseline Discharge Orders: Discharge Order (Routine); Ordered 07/31/20 Ordered By: Angel Palacios Pending Pending Pending: Resuscitation Status Full Code Diet Regular Diet Start SunJul 30 953 Hydrocodone Bitart/Acetaminophen (Maple 7.5/325mg) 1 tab PO Q4HP PRN; Protocol PRN Reason: Per Pain Protocol Last Admin: 07/31/20 12:52 Dose: 1 tab Documented by: Admin: 07/31/20 06:53 Dose: 1 tab Documented by: Admin: 07/30/20 18:46 Dose: 1 tab Documented by: SADIQ Hydromorphone HCl (Dilaudid) 1 mg IV Q2HP PRN; Protocol PRN Reason: Per Pain Protocol Last Admin: 07/31/20 09:03 Dose: 1 mg Documented by: Admin: 07/31/20 03:36 Dose: 1 mg Documented by: Admin: 07/30/20 22:41 Dose: 1 mg Documented by: Admin: 07/30/20 20:10 Dose: 1 mg Documented by: Admin: 07/30/20 15:45 Dose: 1 mg Documented by: Admin: 07/30/20 11:54 Dose: 1 mg Documented by: Admin: 07/30/20 10:00 Dose: 1 mg Documented by: ASHWIN Sodium Chloride (Saline Flush) 10 ml IV Q8 SIOMARA Last Admin: 07/31/20 08:07 Dose: Not Given Documented by: Admin: 07/31/20 03:37 Dose: 10 ml Documented by: Admin: 07/30/20 20:11 Dose: 10 ml Documented by: Admin: 07/30/20 13:21 Dose: 10 ml Documented by: ASHWIN Shift Summary 07/31/20 04:18 Shift Summary by Dalton Waite Pt has rested well tonight. LLQ ABD pain well controlled w/ Dilaudid 1mg IV - last dose given @ 0335. Maple 7.5 (1) given @ 1845 - did not seem effective for pain control. Voiding into toilet (I). No N/V. No BM. Up AMB (I) in RM & out in jackson - gait stable w/o device. Saline locks LT F/A & RT hand - flushed & patent. Surgical incision LLQ ABD - scant serosang drainage - gabe, & film dressing - C,D,I. VS - WNL on R.A.. He is A&O x4, calm, pleasant, & cooperative. Initialized on 07/31/20 04:18 - END OF NOTE
--- NOTE | 2020-08-04 08:52 | Operative Note ---
DATE OF OPERATION: 07/30/2020 PREOPERATIVE DIAGNOSIS: Left inguinal hernia. POSTOPERATIVE DIAGNOSIS: Left inguinal hernia. PROCEDURE: Left inguinal hernia repair. SURGEON: Angel Palacios M.D. FINDINGS: Large indirect sac and lipoma of the cord. DESCRIPTION OF PROCEDURE: Under general anesthesia, the patient's abdomen was prepped and draped in a sterile field along with the genitalia. Timeout procedure was carried out as per protocol. A curvilinear incision was made in the left inguinal area. It was extended through the superficial fascia to the aponeurosis. The aponeurosis was opened in the line of its fibers. The cord was mobilized. Inspection revealed a lipoma of the cord and a large indirect sac. The indirect sac was dissected back to the internal ring and invaginated. The lipoma was dissected back to the internal ring and invaginated. Mesh plug was placed in the internal ring and was sutured in place circumferentially using 2-0 Prolene. Onlay patch was placed and was sutured circumferentially using 2-0 Prolene. Irrigation was carried out. The cord was placed in anatomic position and the aponeurosis was closed with 2-0 Monocryl. The superficial fascia was irrigated and closed with 2-0 Vicryl. Akrtik were used to close the skin. Tegaderm dressing was placed. The patient tolerated the procedure well. He was awakened, transferred to a bed, and taken to the postanesthetic care unit in satisfactory condition. LCS:karolina Job ID: [id number] Doc ID: [id number] Anegl Palacios M.D.
[2020-08-04 19:19] LABS: Cannabinoid Confirmation Positive
== END 2020-07-31 14:05 | disposition home or self-care (01) ==
LOC: ED 10:21 → MEDSUR 10:21
PROVIDERS: ADMIT Family Medicine Adult Medicine; ATTEND Family Medicine Adult Medicine